=== PATIENT | male | born 1975 | race Asian ===

== ENCOUNTER → 2020-06-20 | Outpatient (CLI) | payer MEDICAID ==
--- NOTE | 2020-06-20 08:22 | RAD ---
Examination: Ultrasound abdomen complete HISTORY: History of abdominal pain, flank pain COMPARISON: None available. FINDINGS: The echogenicity of the liver grossly appears unremarkable. The gallbladder is mildly distended. No evidence of gallstones. The right kidney measures 9.6 x 4.8 x 3.5 cm . The left kidney measures 10.1 x 4.1 x 3.9 cm. There is a cystic structure identified in the left kidney measuring 4.2 cm. The spleen appears unremarkable. The visualized aorta, IVC within normal limits of dimension. IMPRESSION: 1. 4.2 cm cyst left kidney. Electronically signed by: Jeremias Jean Baptiste MD (06/20/2020 8:19 AM) [id number]
== END ==
LOC: US 06:54
PROVIDERS: ATTEND Family Medicine
DX: N28.1 Cyst of kidney, acquired (principal)
CPT/HCPCS: 76700

== ENCOUNTER → 2021-12-21 | Outpatient (CLI) | payer MEDICAID ==
--- NOTE | 2021-12-21 09:57 | RAD ---
EXAM: ULTRASOUND ABDOMEN COMPLETE CLINICAL HISTORY: Abdominal pain COMPARISON: 06/20/2020 TECHNIQUE: Ultrasound of the upper abdomen was performed. FINDINGS: The visualized pancreas grossly appears unremarkable. The visualized aorta, IVC within normal limits of dimension. The right lobe of the liver measures 12.4 cm. The gallbladder is mildly distended. Small echogenicity within the gallbladder likely sludge. The common bile duct measures 2.2 mm in transverse dimension. The right kidney measures 10.2 x 4.4 x 4.8 cm . The left kidney measures 9.9 x 4.1 x 4.9 cm. A cystic structure identified in the left kidney measuring 4.4 cm likely cyst. The spleen measures 10.8 cm in length. IMPRESSION: 1. Small echogenicity identified in the gallbladder likely sludge. 2. 4.4 cm cyst left kidney again identified. Electronically signed by: Jeremias Jean Baptiste MD (12/21/2021 9:55 AM) [id number]
== END ==
LOC: US 07:32
PROVIDERS: ATTEND Family Medicine
DX: N28.1 Cyst of kidney, acquired (principal); K82.8 Other specified diseases of gallbladder
CPT/HCPCS: 76700